=== PATIENT | female | born 1955 | race Caucasian/White ===

== ENCOUNTER 2018-09-01 08:51 | Outpatient (CLI) | payer BC ==
--- NOTE | 2018-09-01 09:29 | MMO ---
BILATERAL SCREENING MAMMOGRAM: Date: 09/01/18 HISTORY: 63-year-old female. Routine screening mammography. COMPARISON: 04/29/16. TECHNIQUE: CC and MLO views of both breasts, along with cleavage view, are submitted for interpretation. This patient's mammogram was reviewed with the assistance of computer-aided detection. FINDINGS: The breasts are predominantly fatty replaced. Bilaterally, no suspicious dominant mass, architectural distortion, or suspicious calcifications. There are bilateral benign-appearing calcifications. IMPRESSION: BIRADS 2: Benign Finding(s) RECOMMENDATION: Annual mammogram. POS: [facility]
== END 2018-09-01 08:52 | disposition home or self-care (01) ==
LOC: SCSMAMMO 08:51
PROVIDERS: ATTEND Family Medicine
DX: Z12.31 Encounter for screening mammogram for malignant neoplasm of breast (principal)
CPT/HCPCS: 77067

== ENCOUNTER 2021-11-19 12:22 | Outpatient (CLI) | payer MEDICARE | END 2021-11-19 12:23 | disposition home or self-care (01) | LOC: BICMAMMO 12:22 | PROVIDERS: ATTEND Family Medicine | DX: Z12.31 Encounter for screening mammogram for malignant neoplasm of breast (principal) | CPT/HCPCS: 77063; 77067 ==